=== PATIENT | male | born 1945 | race Caucasian/White ===

== ENCOUNTER → 2022-02-24 00:25 | Outpatient (CLI) | payer MEDICARE, SELFPAY ==
[2022-02-24 11:32] LABS: SARS-CoV-2 RNA PCR Negative
== END ==
PROVIDERS: PCP Family Medicine; Visit Provider Plastic Surgery
DX: Z01.812 Encounter for preprocedural laboratory examination (principal); Z20.822 Contact with and (suspected) exposure to COVID-19
CPT/HCPCS: 36415; 80048; C9803; U0003; U0005

== ENCOUNTER 2022-02-24 09:31 | Outpatient (CLI) | payer MEDICARE, SELFPAY ==
[2022-02-24 10:14] LABS: Anion Gap 11 mmol/L (8-16); Blood Urea Nitrogen 7 mg/dL (9-20); Calcium 8.8 mg/dL (8.4-10.2); Carbon Dioxide 23 mmol/L (22-30); Chloride 98 mmol/L (98-107); Estimated Glomerular Filt Rate > 60; Glucose 221 mg/dL (65-110); Potassium 3.8 mmol/L (3.4-5.0); Sodium 132 mmol/L (137-145)
== END 2022-02-24 09:32 | disposition home or self-care (01) ==
LOC: ANHSURGERY 09:36
PROVIDERS: Anesthesiology; PCP Family Medicine; Visit Provider Plastic Surgery
DX: Z01.818 Encounter for other preprocedural examination (principal); E11.9 Type 2 diabetes mellitus without complications
CPT/HCPCS: 36415; 80048

== ENCOUNTER 2022-02-27 01:25 | Day surgery (SDC) | payer MEDICARE, SELFPAY ==
--- NOTE | 2022-02-13 15:44 | PC.NURSE ---
Report to the Outpatient Waiting Room, entrance under the green pavilion located off [facility], at time __0630 on date _02/27/22 . OR Time: . - You and your visitor will be asked a series of questions to screen for COVID 19 for your protection. - A mask is required within the hospital. Preoperative COVID Testing Requirements: No COVID Test needed if: (proof is required; if not received patient will have Rapid Test prior to entry) - Patient has received COVID Vaccine at least 14 days prior to procedure date or - Patient has positive COVID test result within last 90 days of surgery date. COVID TESTING AT 02/24/22 @ 0930 COVID Test needed if above criteria is not met If not COVID vaccinated a COVID test must be conducted within 72 hours of surgery and patient is asked to isolate self from time of testing until procedure. You will go to the [employer] [facility] for your COVID testing. The [employer] [facility] site is located at the corner of [address] [facility]. You will only be called if COVID results are positive and your surgeon may reschedule your elective surgery date. Patients may have clear liquids (water, carbonated beverages, clear teas, apple juice) until 3 hours prior to surgery with a maximum of 20 ounces. - No food from midnight until time of surgery - Infants may have breast milk until 4 hours before surgery, formula 6 hours prior to surgery. - Children will be allowed to drink immediately following surgery. If applicable, please bring a bottle or sippy cup to assist with drinking. Juice, water, soda, and popsicles are readily available. For infants on formula, please bring formula the day of surgery. Pacifiers are allowed. Take the following medications with a SIP of water the morning of surgery: ___EYE DROPS MAY CONTINUE ASPIRIN JUST DON'T TAKE MORNING OF SURGERY Medications to discontinue per physician ____ALL VITAMINS AND SUPPLEMENTS 3 DAYS PRE OP Date to take last dose___02/23/22 Please no make-up, nail citizen of the [place], hairspray, perfume, deodorant, or body powder the day of surgery. No jewelry (including any body piercings) or valuables the day of surgery, leave them at home. Please take a shower or bath the night before, or the morning of, surgery with an antibacterial soap. Wear comfortable, loose fitting clothing. Children are encouraged to wear pajamas. - Jewelry must be removed prior to entering the operating room. Rings and piercings that are not removed may be cut off. - The hospital will not accept responsibility for valuables. - Please leave all valuables, including medications, at home the day of surgery. If you are going home after surgery, a licensed team otr truck driver must drive you home. - NO public transportation without another adult. - We recommend that an adult stay with you for 24 hours following discharge. - We also recommend that you do not drive, make important decision, drink alcoholic beverages, or take any drugs that were not prescribed by your health care provider for at least 24 hours after your discharge time. For Pediatric surgeries, we recommend two adults accompany the child home (only one inside the building at this time). One visitor will be allowed to accompany the patient into the hospital. Patients visitor will be instructed to remain with patient at all times or leave the building. We will allow the visitor to come back to the postoperative area when patient is ready. Follow any additional instructions given to you from your surgeon. Telephone instructions given to __PATIENT and asked if any additional questions and then verbalized understanding. Patient advised to call surgeon office or pre surgery nurse liaison [phone] if any additional questions.
[2022-02-13 15:58] VITALS: BMI 25.8
--- NOTE | 2022-02-27 07:05 | WPDHPUPDATE1 ---
History and Physical Update Update Date/Time: 02/27/22 07:05 History and Physical has been reviewed, including an updated exam of the patient. There are NO changes in the patient's condition. Risks, benefits, and alternatives have been discussed and questions answered. Patient agrees to proceed with procedure.
[2022-02-27] MEDS: LACTATED RINGERS 1,000 ML 30 ML IV CONT (07:11)
[2022-02-27 07:12] LABS: Glucose Point of Care 274 mg/dl (65-105)
[2022-02-27 07:14] VITALS: BP 156/90; PULSE 70; RESP 16; TEMP 35.9; O2SAT 100
--- NOTE | 2022-02-27 07:14 | WPDANESEPPF ---
Anes - Initial Pre Proc Eval Procedure: Operation Date: 02/27/22 08:30 Proposed Procedures p Excision of Keratoacanthoma Right Antihelix with Frozen Section and Full Thickness Skin Graft - Madhu Jacinto MD <Ortiz Zavala MD - Last Filed: 02/27/22 08:16> Date/Time: 02/27/22 07:14 <Ortiz Zavala MD - Last Filed: 02/27/22 08:16> Surgeon: Madhu Jacinto MD <Ortiz Zavala MD - Last Filed: 02/27/22 08:16> Pre Op Diagnosis: keratoacanthoma rt antihelix <Ortiz Zavala MD - Last Filed: 02/27/22 08:16> Patient Data Age: 76 Gender: M Height: 1.75 m Weight: 79.4 kg <Ortiz Zavala MD - Last Filed: 02/27/22 08:16> Allergies Allergy/AdvReac Type Severity Reaction Status Date / Time No Known Allergies Allergy Verified 02/27/22 06:54 <Ortiz Zavala MD - Last Filed: 02/27/22 08:16> Home Medications Medication Instructions Recorded Confirmed Type amlodipine 5 mg PO HS 02/13/22 02/27/22 History aspirin [Adult Low Dose Aspirin] 81 mg PO HS 02/13/22 02/27/22 History brimonidine 1 drp EACH EYE BID 02/13/22 02/27/22 History cholecalciferol (vitamin D3) 25 mcg PO HS 02/13/22 02/27/22 History cyanocobalamin (vitamin B-12) 1,000 mcg PO HS 02/13/22 02/27/22 History dorzolamide-timolol 1 drp EACH EYE BID 02/13/22 02/27/22 History ezetimibe 10 mg PO HS 02/13/22 02/27/22 History finasteride 5 mg PO HS 02/13/22 02/27/22 History glipizide 10 mg PO BID 02/13/22 02/27/22 History latanoprost 1 drp LEFT EYE HS 02/13/22 02/27/22 History metformin 1,000 mg PO BID 02/13/22 02/27/22 History <Ortiz Zavala MD - Last Filed: 02/27/22 08:16> Laboratory Tests 02/27/22 07:10 POC Capillary Glucose 274 mg/dl H mg/dl (65-105) <Ortiz Zavala MD - Last Filed: 02/27/22 08:16> Patient hx anesthesia problems: none <Hakeem Andrew DO - Last Filed: 02/27/22 07:36> Family hx anesthesia problems: none <Hakeem Andrew DO - Last Filed: 02/27/22 07:36> Results Review: All pre-operative results and documents have been reviewed as part of the pre-operative evaluation. <Ortiz Zavala MD - Last Filed: 02/27/22 08:16> [facility] Past Medical History Medical History: Medical History (Updated 02/27/22 @ 07:16 by Ortiz Zavala MD) CAD (coronary artery disease) Diabetes Glaucoma HTN (hypertension) Hyperlipidemia Osteoarthritis <Ortiz Zavala MD - Last Filed: 02/27/22 08:16> Surgical History Surgical History: Surgical History (Updated 02/27/22 @ 07:16 by Ortiz Zavala MD) History of coronary artery stent placement <Ortiz Zavala MD - Last Filed: 02/27/22 08:16> Social History Social History: Social History Smoking packs per day: 2 Smoking cigarettes per day: 40.0 Years smoked: 50 Smoking pack-years: 100.00 Smoking status: Former smoker Tobacco type: cigarettes Smokeless tobacco user: chewing tobacco Smoking end date: 11/16/01 Additional smoking assessment comments: CURRENTLY CHEWS TOBACCO Living arrangements: with family Spiritual care concerns: No <Ortiz Zavala MD - Last Filed: 02/27/22 08:16> Anes - Eval Final PreProcedure Day of Procedure 02/27/22 07:14 <Ortiz Zavala MD - Last Filed: 02/27/22 08:16> Patient weight: normal <Ortiz Zavala MD - Last Filed: 02/27/22 08:16> Heart: regular rate and rhythm <Ortiz Zavala MD - Last Filed: 02/27/22 08:16> Lungs: clear to auscultation and normal air movement <Ortiz Zavala MD - Last Filed: 02/27/22 08:16> Airway: Mallampati scale class II <Ortiz Zavala MD - Last Filed: 02/27/22 08:16> Neurological: alert and oriented <Ortiz Zavala MD - Last Filed: 02/27/22 08:16> Last oral intake: >/= 8 hours <Ortiz Zavala MD - Last Filed: 02/27/22 08:16> ASA classification: III <Oritz Zavala MD - Last Filed: 02/27/22 08:16> [facility]
--- NOTE | 2022-02-27 08:19 | SUR.PREOP ---
0730- PT BLOOD SUGAR 274, REVIEWED WITH DR. DEWEY AND HE STATED TO CHECK BLOOD SUGAR IN RECOVERY.
[2022-02-27] MEDS: LIDO 1%/EPINEPHRINE/PF 1:200,000 30 ML VIAL INFILTRATE (09:19)
[2022-02-27] MEDS: BACITRACIN OINTMENT 15 GM TUBE 1 APPLIC TOPICAL (09:35)
[2022-02-27 09:39] VITALS: BP 104/66; PULSE 56; RESP 12; O2SAT 100
[2022-02-27 09:52] LABS: Glucose Point of Care 157 mg/dl (65-105)
--- NOTE | 2022-02-27 09:57 | W.PM.PROC2 ---
Procedure Note - Detailed Date of Procedure 02/27/22 Pre-op Diagnosis keratoacanthoma rt antihelix Post-op Diagnosis Same Procedure Performed 1 cm excision of keratoacanthoma right antihelix with frozen section and full-thickness skin graft 1 sq cm Surgeon Madhu Jacinto MD [employer] Anesthesia MAC Indications Keratoacanthoma by punch biopsy Description of Procedure The site was marked on the patient's ear over the antihelix in the holding area. He was then taken to the operating room where he was placed supine on the operating table. He was given IV sedation the face and ear neck were prepped and draped in usual fashion. Time-out was held and confirmed. The site was carefully marked for excision and locally infiltrated with 1% lidocaine with epinephrine. The full-thickness skin ellipse was taken at the level of the perichondrium. The perichondrium was not stripped off the cartilage. The specimen was marked at the superior edge for 12:00 o'clock and sent to pathology. The report was that this was previous biopsy change only. The graft was taken from the right upper neck near the auricular sulcus. It was a full-thickness graft the donor site was closed with intradermal 4-0 Monocryl suture and glue. The graft was defatted and inset with 5 0 nylon. Small bandage was applied tolerated well. He was discharged home with prescription for cephalexin for 5 days Estimated Blood Loss 1 Drains No Packing No Pathology Yes Complications No immediate complications Condition Stable Disposition Same day
[2022-02-27 10:05] VITALS: BP 104/66; PULSE 57; RESP 12; O2SAT 100
[2022-02-27 10:35] VITALS: BP 128/66; PULSE 59; RESP 12
[2022-02-27 11:00] VITALS: BP 142/72; PULSE 60; RESP 12
== END 2022-02-27 11:05 | disposition home or self-care (01) ==
PROVIDERS: PCP Family Medicine; Visit Provider Plastic Surgery
PROC: (CPT 11441; principal; 2022-02-27 08:30)
DX: L85.8 Other specified epidermal thickening (principal); E11.9 Type 2 diabetes mellitus without complications; I25.10 Atherosclerotic heart disease of native coronary artery without angina pectoris; I10 Essential (primary) hypertension; E78.5 Hyperlipidemia, unspecified; H40.9 Unspecified glaucoma; Z79.84 Long term (current) use of oral hypoglycemic drugs; Z79.82 Long term (current) use of aspirin; F17.220 Nicotine dependence, chewing tobacco, uncomplicated
CPT/HCPCS: 11441; 15260; 82948; 88305; 88331; A9270; J1100; J2250; J2405; J2704; J3010; J7120

== ENCOUNTER 2023-07-29 09:43 | Outpatient (CLI) | payer MEDICARE, SELFPAY | END 2023-07-29 09:44 | disposition home or self-care (01) | PROVIDERS: PCP Family Medicine; Visit Provider Family Medicine | DX: H90.3 Sensorineural hearing loss, bilateral (principal) | CPT/HCPCS: 92557; 92567 ==

== ENCOUNTER 2023-10-06 12:10 | Outpatient (CLI) | payer MEDICARE, SELFPAY ==
[2023-10-06 12:55] LABS: Basophils Absolute Auto 0.01 K/mm3 (0.00-0.10); Basophils Percent Auto 0.2 % (0.0-1.0); Eosinophils Absolute Auto 0.06 K/mm3 (0.02-0.50); Hematocrit 32.1 % (37.0-46.0); Hemoglobin 10.7 g/dL (12.4-15.3); Immature Granulocyte Absolute 0.04 K/mm3 (0.00-0.00); Immature Granulocyte Percent A 0.7 % (0.0-0.0); Immature Reticulocyte Fraction 15.3 % (2.0-16.52); Lymphocytes Absolute Auto 1.42 K/mm3 (1.10-4.50); Lymphocytes Percent Auto 23.5 % (18.0-42.0); Mean Corpuscular HGB Conc 33.3 g/dL (32.0-36.0); Mean Corpuscular Hemoglobin 29.9 pg (27.0-31.0); Mean Corpuscular Volume 89.7 fL (78.0-102.0); Monocytes Absolute Auto 0.45 K/mm3 (0.10-0.90); Monocytes Percent Auto 7.5 % (2.0-11.0); Neutrophils Absolute Auto 4.1 K/mm3 (1.7-7.2); Neutrophils Percent Auto 67.1 % (50.0-70.0); Platelet Count Result 284 K/mm3 (150-420); Red Blood Count 3.58 M/mm3 (4.70-6.10); Red Cell Distribution Width 13.3 % (11.6-14.4); Reticulocyte Hemoglobin Conten 33.3 pg (28.0-35.0); Reticulocytes Absolute 0.04 M/mm3 (0.02-0.1)
[2023-10-06 13:34] LABS: Folic Acid 3.6 ng/mL (8.6->20); Iron 67 ug/dL (65-175); Percent Iron Saturation 19 % (12-57)
== END 2023-10-06 12:11 | disposition home or self-care (01) ==
PROVIDERS: PCP Family Medicine; Visit Provider Physician Assistant
DX: D64.9 Anemia, unspecified (principal)
CPT/HCPCS: 36415; 82746; 83540; 83550; 85025; 85046